=== PATIENT | female | born 2000 | race Caucasian/White ===

== ENCOUNTER 2021-08-27 05:21 | Inpatient (IN) | payer OTHER ==
[~2021-08-27] VITALS: Ht 157.5 cm; Wt 86.6 kg
[2021-08-27] MEDS ORDERED: FAMOTIDINE40 MG PO (06:15)
[2021-08-27] MEDS ORDERED: PRENATAL VITAM1 EAC4 PO (06:16)
[2021-08-27 06:39] LABS: HEMOGLOBIN 13.3 gm/dl (12.3-15.3); RED BLOOD COUNT 4.4 M/UL (4.00-5.10); WHITE BLOOD COUNT 13.9 K/UL (4.5-11.0)
[2021-08-28 07:15] LABS: HEMOGLOBIN 10.9 gm/dl (12.3-15.3)
== END 2021-08-29 11:00 | disposition home or self-care (01) | DRG 786 ==
LOC: OB 05:21
PROVIDERS: ADMIT Obstetrics & Gynecology
PROC: 4A1HXCZ Monitoring of Products of Conception, Cardiac Rate, External Approach (ICD-10-PCS; 2021-08-27)
PROC: 3E0234Z Introduction of Serum, Toxoid and Vaccine into Muscle, Percutaneous Approach (ICD-10-PCS; 2021-08-27)
PROC: 10D00Z1 Extraction of Products of Conception, Low, Open Approach (ICD-10-PCS; principal; 2021-08-27 07:30)
DX: O32.1XX0 Maternal care for breech presentation, not applicable or unspecified (principal); U07.1 COVID-19; O98.52 Other viral diseases complicating childbirth; O99.344 Other mental disorders complicating childbirth; F41.9 Anxiety disorder, unspecified; Z3A.40 40 weeks gestation of pregnancy; Z37.0 Single live birth; Z90.49 Acquired absence of other specified parts of digestive tract; Z81.8 Family history of other mental and behavioral disorders; Z82.49 Family history of ischemic heart disease and other diseases of the circulatory system; Z83.3 Family history of diabetes mellitus; Z87.891 Personal history of nicotine dependence; Z23 Encounter for immunization
CPT/HCPCS: 81001; 82800; 85014; 85018; 85025; 85461; 86850; 86900; 86901; 90715; C9113; J0690; J1200; J2210; J2274; J2370; J2405; J2590; J2790; J3010; J7120; U0002